=== PATIENT | male | born 1990 | race Caucasian/White ===

== ENCOUNTER 2018-06-28 22:51 | Emergency (ER) | payer OTHER ==
[~2018-06-28] VITALS: Ht 167.6 cm; Wt 90.7 kg
[~2018-06-28 22:51] MED LIST: OMEP20TA63 PO; RANI150T21 PO
[2018-06-28 23:08] VITALS: BP 142/102
--- NOTE | 2018-06-28 23:23 | PHYS DOC ---
Past History Past Medical History: GERD, Other Past Surgical History: Other Alcohol Use: Rarely Drug Use: None Adult General Chief Complaint Chief Complaint: Cough HPI HPI This is a 28-year-old male presenting with productive cough and malaise for the last 4 days. Patient states the reason he came to the ED today was concerned after noticing a few streaks of blood in his sputum after coughing. Also complains of night sweats, chills and some pleuritic chest pain. Patient has not measured his temperature at home and denies leg swelling, SOB, nausea, vomiting, diarrhea, abdominal pain, or recent travel. Reports frequent sick contact, he works for the [employer] department but has missed the past 4 days of work due to malaise. No family hx of DVT/PE. Denies known trauma. Review of Systems Review of Systems Constitutional: Reports malaise, chills, night sweats; Denies recent weight loss HENT: Reports nasal congestion, sore throat Respiratory: Reports cough, blood-tinged sputum x1 Cardiovascular: Reports pleuritic chest pain; Denies chest pain with exertion GI: Denies abdominal pain, nausea, vomiting, bloody stools or diarrhea Complete systems were reviewed and found to be within normal limits, except as documented in this note. Allergies Allergies Allergies Coded Allergies Type Severity Reaction Last Updated Verified No Known Drug Allergies 10/28/14 No Physical Exam Physical Exam Constitutional: Well developed, well nourished, no acute distress, non-toxic appearance. [] HENT: Normocephalic, atraumatic, no sinus tenderness, erythematous and swollen nasal turbinates, sinuses nontender Eyes: Conjunctiva normal, no discharge Neck: Normal range of motion, no tenderness, supple, no meningeal signs Cardiovascular: Heart rate regular rhythm, no murmur, no JVD Lungs & Thorax: Bilateral breath sounds clear to auscultation with coughing on exhalation Abdomen: Soft, no tenderness, no masses, no pulsatile masses Skin: Warm, dry, no erythema, no rash Extremities: No calf tenderness, no LE edema Neurologic: Alert and oriented X 3, normal motor function, normal sensory function, no focal deficits noted Psychologic: Affect normal, judgement normal, mood normal EKG EKG [] Radiology/Procedures Radiology/Procedures [] Course & Med Decision Making Course & Med Decision Making Pertinent Labs and Imaging studies reviewed. (See chart for details) This is a 28 -year-old male presenting to the with 4 days cough, malaise, chills , night sweats and nasal congestion, with one episode of blood-tinged sputum today. Sats stable. Patient with no risk factors for pulmonary embolism. No clinical signs of DVT. Given HPI symptoms more likely bronchitis. CXR without acute infiltration. Symptomatic treatment provided. Patient stable for discharge with outpatient follow-up with PCP. Discussed findings and plan with patient, who acknowledges understanding and agreement. Dragon Disclaimer Dragon Disclaimer This electronic medical record was generated, in whole or in part, using a voice recognition dictation system. Departure Departure: Impression: Primary Impression: Acute bronchitis Disposition: HOME, SELF-CARE Condition: STABLE Referrals: PCP,UNKNOWN (PCP) Patient Instructions: Acute Bronchitis, [id number] Benzonatate (TESSALON PERLE) 100 Mg Capsule 1 CAP PO TID PRN for COUGH, #21 CAP Prov: LAURA NOLEN DO 06/28/18 Prednisone (PREDNISONE) 20 Mg Tablet 2 TAB PO DAILY for Bronchitis, #8 TAB Take next dose tomorrow 06/29/18. Prov: LAURA NOLEN DO 06/28/18 Albuterol Sulfate (PROAIR HFA INHALER) 8.5 Gm Hfa.aer.ad 1 PUFF INH PRN Q6HRS PRN for WHEEZING, #1 INHALER 0 Refills Prov: LAURA NOLEN DO 06/28/18 Problem Qualifiers Primary Impression: Acute bronchitis Bronchitis organism: unspecified organism Qualified Codes: J20.9 - Acute bronchitis, unspecified LAURA NOLEN DO Jun 28, 2018 23:23
[2018-06-28] MEDS ORDERED: DEXAMETHASONE 4 MG TABLET PO ONE (23:30)
[2018-06-28] MEDS ORDERED: BENZ100C PO (23:50)
[2018-06-28] MEDS ORDERED: ALBU8.5H8 INH (23:50)
[2018-06-28] MEDS ORDERED: PRED20TA PO (23:50)
--- NOTE | 2018-06-29 08:12 | RAD ---
Chest, PA and Lateral: Technique: PA and lateral views of the chest were obtained. History: Productive cough. Comparison: None. Findings: The heart and pulmonary vasculature appear within normal limits. The lungs are clear. The pleural margins are clear. Impression: No acute chest process is seen. Electronically signed by: Devonte Castro MD (06/29/2018 8:09 AM) [facility]
== END 2018-06-29 | disposition home or self-care (01) ==
LOC: ER 22:51
DX: J20.9 Acute bronchitis, unspecified (principal); R07.81 Pleurodynia; K21.9 Gastro-esophageal reflux disease without esophagitis
CPT/HCPCS: 71046; 99283; J8540